=== PATIENT | female | born 1965 | race Caucasian/White ===

== ENCOUNTER 2020-01-15 | Outpatient (RCR) | payer BC, SELFPAY | END 2020-01-16 | disposition home or self-care (01) | LOC: TPT | PROVIDERS: Family Provider Registered Nurse; PCP Family Medicine; Referring Provider Nurse Practitioner; Visit Provider Nurse Practitioner | DX: M48.02 Spinal stenosis, cervical region (principal) | CPT/HCPCS: 80053; 84443 ==

== ENCOUNTER → 2020-02-19 13:59 | Outpatient (BNVA) | payer BC, SELFPAY | PROVIDERS: Family Provider Registered Nurse; PCP Nurse Practitioner; Visit Provider Family Medicine | DX: E03.9 Hypothyroidism, unspecified (principal) | CPT/HCPCS: 84439; 84443; 84481 ==

== ENCOUNTER → 2020-03-18 09:17 | Outpatient (BNVA) | payer BC, SELFPAY | PROVIDERS: Family Provider Registered Nurse; PCP Family Medicine; Visit Provider Family Medicine | DX: B18.2 Chronic viral hepatitis C (principal); R20.0 Anesthesia of skin; R20.2 Paresthesia of skin; E66.9 Obesity, unspecified | CPT/HCPCS: 87522 ==